=== PATIENT | female | born 1975 | race Caucasian/White ===

== ENCOUNTER 2017-06-23 07:33 | Day surgery (SDC) | payer OTHER, SELFPAY ==
[~2017-06-23 07:33] MED LIST: ACET500; BUSP5 PO; GUMMIES CHILDR1 EACH PO; IBUP600 PO; OMEPRAZOLE MAGN20 MG PO; PANT20; Tylenol325 MG PO
== END 2017-06-23 23:55 | disposition home or self-care (01) ==
LOC: MOI US 07:33 → MOI MAM 07:45 → MOI US 07:45
PROC: 0HBV3ZX Excision of Bilateral Breast, Percutaneous Approach, Diagnostic (ICD-10-PCS; principal; 2017-06-23)
DX: D05.12 Intraductal carcinoma in situ of left breast (principal); N60.21 Fibroadenosis of right breast
CPT/HCPCS: 19083; 77066; 88305; 88341; 88342; 88360; A4648

== ENCOUNTER → 2017-10-25 | Outpatient (CLI) | payer OTHER, SELFPAY | LOC: LAB UCHC 05:00 → LAB SHORT 05:00 | DX: R19.7 Diarrhea, unspecified (principal) | CPT/HCPCS: 87329; 87338 ==

== ENCOUNTER 2018-05-28 11:47 | Day surgery (SDC) | payer OTHER ==
[~2018-05-28] VITALS: Ht 160 cm; Wt 45.5 kg
== END 2018-05-28 14:26 | disposition home or self-care (01) ==
LOC: ORSCSDS 11:47 → ORD 13:00 → ORSCSDS 13:00
PROVIDERS: Student in an Organized Health Care Education/Training Program
PROC: 0DB98ZX Excision of Duodenum, Via Natural or Artificial Opening Endoscopic, Diagnostic (ICD-10-PCS; principal; 2018-05-28 13:00)
PROC: 0DB58ZX Excision of Esophagus, Via Natural or Artificial Opening Endoscopic, Diagnostic (ICD-10-PCS; principal; 2018-05-28 13:00)
PROC: 0DBG8ZX Excision of Left Large Intestine, Via Natural or Artificial Opening Endoscopic, Diagnostic (ICD-10-PCS; principal; 2018-05-28 13:00)
PROC: 0DB68ZX Excision of Stomach, Via Natural or Artificial Opening Endoscopic, Diagnostic (ICD-10-PCS; principal; 2018-05-28 13:00)
PROC: 0DBF8ZX Excision of Right Large Intestine, Via Natural or Artificial Opening Endoscopic, Diagnostic (ICD-10-PCS; principal; 2018-05-28 13:00)
DX: R19.4 Change in bowel habit (principal); R13.10 Dysphagia, unspecified; R63.4 Abnormal weight loss; K21.9 Gastro-esophageal reflux disease without esophagitis; R11.0 Nausea; Z79.899 Other long term (current) drug therapy
CPT/HCPCS: 88305; 88342

== ENCOUNTER → 2019-01-01 | Outpatient (CLI) | payer OTHER | END | disposition home or self-care (01) | LOC: PLD 08:41 → LAB SHORT 08:41 | DX: N93.8 Other specified abnormal uterine and vaginal bleeding (principal) | CPT/HCPCS: 88305 ==

== ENCOUNTER → 2020-01-04 | Outpatient (CLI) | payer OTHER | END | disposition home or self-care (01) | LOC: LAB 08:40 → LAB SHORT 08:40 | DX: N39.0 Urinary tract infection, site not specified (principal) | CPT/HCPCS: 87077; 87086; 87186 ==

== ENCOUNTER → 2020-02-21 | Outpatient (CLI) | payer OTHER | END | disposition home or self-care (01) | LOC: LAB 13:44 → LAB SHORT 13:44 | DX: N30.01 Acute cystitis with hematuria (principal) | CPT/HCPCS: 87077; 87086; 87186 ==

== ENCOUNTER → 2020-11-23 | Outpatient (CLI) | payer OTHER | END | disposition home or self-care (01) | LOC: LAB SHORT 17:51 → LAB 17:51 | DX: R35.0 Frequency of micturition (principal) | CPT/HCPCS: 87077; 87086; 87186 ==

== ENCOUNTER → 2023-02-27 | Outpatient (CLI) | payer BC ==
[2023-02-28 11:47] LABS: Candida species (DNA Probe) Negative (NEGATIVE); G. vaginalis (DNA Probe) Positive (NEGATIVE); T. vaginalis (DNA Probe) Negative (NEGATIVE)
== END ==
LOC: LAB 17:45 → LAB SHORT 17:45
PROVIDERS: Advanced Practice Midwife
DX: N76.0 Acute vaginitis (principal)
CPT/HCPCS: 87480; 87510; 87660

== ENCOUNTER → 2023-10-19 | Outpatient (CLI) | payer BC ==
[2023-11-04 12:08] LABS: HPV HIGH RISK BY TMA Not Detected; HPV SOURCE Cervical
== END ==
LOC: LAB 10:51 → LAB SHORT 10:51
PROVIDERS: Family Medicine
DX: Z12.4 Encounter for screening for malignant neoplasm of cervix (principal)
CPT/HCPCS: 87624; G0123

== ENCOUNTER 2025-01-22 12:49 | Emergency (ER) | payer BC ==
[~2025-01-22] VITALS: Ht 154.9 cm; Wt 53.1 kg
[2025-01-22 13:48] VITALS: BP 115/88
[2025-01-22] MEDS ORDERED: Prochlorperazine Edisylate 10 mg Vial IV ONE (13:55)
[2025-01-22] MEDS ORDERED: NS 1,000 ML IV SCH (13:55)
[2025-01-22] MEDS ORDERED: DiphenhydrAMINE HCl 50 MG/ML 1ML Vial IV ONE (13:55)
== END 2025-01-22 16:35 | disposition home or self-care (01) ==
LOC: ER 12:49
DX: R51.9 Headache, unspecified (principal); Z88.0 Allergy status to penicillin; Z88.8 Allergy status to other drugs, medicaments and biological substances; Z79.899 Other long term (current) drug therapy
CPT/HCPCS: 70450; 96374; 96375; 99284-25; J0780; J1200; J7030